=== PATIENT | female | born 1995 | race Caucasian/White ===

== ENCOUNTER → 2017-11-30 | Outpatient (CLI) | payer OTHER ==
--- NOTE | 2017-11-30 13:20 | US ---
EXAMINATION TYPE: Transabdominal DATE OF EXAM: 09/12/17 COMPARISON: NONE CLINICAL HISTORY: Z36 Confirm Dates. Confirm dates, patient unsure of LMP, 2, para 1 EXAM PERFORMED: Transabdominal (TA) EXAM MEASUREMENTS: GESTATIONAL AGE / DATING Physician Established: Not established yet Dates by LMP: Unknown Dates by First Scan: This is 1st scan Dates by Current Scan for: (10 weeks/0 days) EDC: 06/28/2017 MATERNAL ANATOMY Uterus: 13.8 x 6.6 x 7.0cm Right Ovary: 2.5 x 1.6 x 1.7cm Left Ovary: 3.0 x 2.1 x 2.0cm Post CDS / Adnexa: wnl Presence of free fluid: no Presence of corpus luteal cyst: not seen Presence of subchorionic bleed: no GESTATION / SURVEY CRL: 3.2cm (10 weeks/0 days) Yolk Sac (normal less than 6mm): 4.2mm Heart Rate: 163 bpm Rhythm: Normal IUP: Viable IUP Date of LMP: Unknown Beta HcG (if available): Not available at time of exam Viable single IUP measuring 10 weeks 0 days with a heart rate of 163bpm and an estimated delivery danny e of 06/28/2017. IMPRESSION: Single live intrauterine with a calculated sonographic age of 10 weeks and 0 days and estim ated date of delivery of 06/28/2017.
== END ==
LOC: RADUSWWP 12:21
PROVIDERS: ATTEND Obstetrics & Gynecology
DX: Z36.89 Encounter for other specified antenatal screening (principal); Z3A.10 10 weeks gestation of pregnancy
CPT/HCPCS: 76801

== ENCOUNTER → 2018-02-02 | Outpatient (CLI) | payer OTHER ==
--- NOTE | 2018-02-02 13:26 | US ---
EXAMINATION TYPE: US OB anatomy transabd DATE OF EXAM: 02/02/2018 COMPARISON: 11/30/2017 US HISTORY: O36.62XO Large for dates, 2nd trimester Difficult exam due to patient body habitus TECHNIQUE: Transabdominal (TA) EXAM MEASUREMENTS: GESTATIONAL AGE / DATING Physician Established: (19 weeks/1 days) EDC: 06/28/2018 Dates by LMP: (19 weeks/1 days) EDC: 06/28/2018 Dates by First Scan: (19 weeks/1 days) EDC: 06/28/2018 Dates by Current Scan for: (19 weeks/3 days) EDC: 06/26/2018 SURVEY IUP: Single PLACENTA: Anterior PREVIA: No previa MISA: 11.7 cm Normal CERVICAL LENGTH (transabdominal: norm > 3.0cm): 4.2 cm BIOMETRY PRESENTATION: Breech LIE: Transverse lie with head maternal Left BPD: 4.4 cm 19 weeks / 3 days HC: 16.95 cm 19 weeks / 4 days AC: 14.6 cm 19 weeks / 6 days FL: 3.05 cm 19 weeks / 3 days ESTIMATED WEIGHT IN GRAMS: 306.7 grams ESTIMATED WEIGHT IN LBS/OZ: 0 lbs. 11 oz. WEIGHT PERCENTAGE BASED ON ESTABLISHED DATE: 77 % HC/AC: 1.16 Normal FL/AC: 20.88 Normal HEART RATE: 146 bpm RHYTHM: Normal ANATOMY SEEN (within normal limits): * Lateral Vent (< 1 cm) 0.7 cm * Cisterna Magna (< 1.1 cm) 0.4 cm * Nuchal Fold (< 0.6 cm) 0.3 cm * Cerebellum (varies with age) 1.9 cm Choroid Plexus (bilateral) Midline Falx Cavus Septi Pellucidi Four Chamber Heart Outflow tracts: LVOT/RVOT Stomach Situs Diaphragm Kidneys (bilateral) Bladder Arms (bilateral) Legs (bilateral) ANATOMY NOT SEEN due to position: Spine Cord Insert 3 vessel cord Nose / Lips MATERNAL WALL MEASUREMENT: 5.1 cm from skin to anterior uterine wall (if exam limited due to body navarrete bitus). IMPRESSION: Viable IUP. Measurements consistent with dates. Patient scheduled for OB callback February 16, 2018 a t 9:40AM.
== END | disposition home or self-care (01) ==
LOC: RADUSWWP 10:56
PROVIDERS: ATTEND Obstetrics & Gynecology
DX: O36.62X0 Maternal care for excessive fetal growth, second trimester, not applicable or unspecified (principal); Z3A.00 Weeks of gestation of pregnancy not specified
CPT/HCPCS: 76811

== ENCOUNTER → 2018-02-16 | Outpatient (CLI) | payer OTHER ==
--- NOTE | 2018-02-16 12:45 | US ---
EXAMINATION TYPE: US OB Call Back DATE OF EXAM: 02/16/2018 COMPARISON: Prior ultrasound February 02, 2018 CLINICAL HISTORY: O36.62XO LARGE FOR DATES. complete out anatomy scan GESTATIONAL AGE / DATING Dates by Initial Survey Scan: (21 weeks/1 days) EDC: 06/28/2018 HEART RATE: 150 bpm RHYTHM: Normal ANATOMY SEEN (second anatomic survey look): Nose / Lips: Cord Insert : Three Vessel Cord: Longitudinal Spine: Transverse Spine: Successful visualization of the above structures during real-time scanning and on images saved felt t o be within normal limits IMPRESSION: As above
== END | disposition home or self-care (01) ==
LOC: RADUSWWP 09:39
PROVIDERS: ATTEND Obstetrics & Gynecology
DX: Z53.9 Procedure and treatment not carried out, unspecified reason (principal)

== ENCOUNTER 2018-06-21 05:55 | Inpatient (IN) | payer OTHER ==
[2018-06-21] MEDS ORDERED: CLINDAMYCIN 600 MG in DEXTROSE 5% IN WATER 50 ML IVPB STA ×2 (06:06)
[2018-06-21] MEDS ORDERED: CITRIC ACID-SODIUM CITRATE 15 ML CUP PO ONE (06:06)
[2018-06-21 06:35] VITALS: BMI 38.7
[2018-06-21] MEDS: LACTATED RINGERS 1,000 ML IV SCH ×3 (06:37→20:08)
[2018-06-21 06:58] LABS: Basophils % (A) 0 %; Eosinophils # (A) 0.1 k/uL (0-0.7); Eosinophils % (A) 1 %; HCT 35.7 % (34.0-46.0); HGB 11.9 gm/dL (11.4-16.0); Lymphocytes # (A) 2.3 k/uL (1.0-4.8); Lymphocytes % (A) 19 %; MCH 29.4 pg (25.0-35.0); MCHC 33.3 g/dL (31.0-37.0); MCV 88.2 fL (80.0-100.0); Mean Platelet Volume 9.2; Monocytes # (A) 0.6 k/uL (0-1.0); Monocytes % (A) 5 %; Neutrophils # (A) 8.4 k/uL (1.3-7.7); Neutrophils % (A) 71 %; Platelet Count 184 k/uL (150-450); RBC 4.05 m/uL (3.80-5.40); WBC 11.8 k/uL (3.8-10.6)
[2018-06-21] MEDS ORDERED: NALBUPHINE 10 MG/ML VIAL (10ML MDV) ONE (07:56)
[2018-06-21] MEDS ORDERED: MORPHINE SULFATE (PF) 0.3 MG/0.3 ML SYR ONE (07:56)
[2018-06-21] MEDS ORDERED: PHENYLEPHRINE-0.9% NACL SYG 1 MG/10 ML SYRINGE ONE (07:56)
[2018-06-21] MEDS ORDERED: KETOROLAC 30 MG/ML 1 ML VIAL ONE (07:56)
[2018-06-21] MEDS ORDERED: OXYTOCIN 10 UNIT/ML 1 ML VIAL ONE (07:56)
[2018-06-21] MEDS ORDERED: LACTATED RINGERS 1,000 ML BAG IV ONE (07:56)
[2018-06-21] MEDS ORDERED: ONDANSETRON 4 MG/2 ML VIAL ONE (07:56)
[2018-06-21] MEDS ORDERED: NALOXONE 0.4 MG/ML 1 ML VIAL IV PRN ×2 (08:51→09:03)
[2018-06-21] MEDS ORDERED: diphenhydrAMINE 50 MG/ML 1 ML VIAL IVP PRN ×3 (08:51→09:03)
[2018-06-21] MEDS ORDERED: NALBUPHINE 10 MG/ML VIAL (10ML MDV) IV PRN (08:51)
[2018-06-21] MEDS ORDERED: MORPHINE SULFATE 2 MG/ML SYRINGE IVP PRN (08:51)
[2018-06-21] MEDS ORDERED: ACETAMINOPHEN TAB 325 MG TAB PO PRN (09:03)
[2018-06-21] MEDS ORDERED: SIMETHICONE 80 MG CHEWABLE PO PRN (09:03)
[2018-06-21] MEDS ORDERED: METOCLOPRAMIDE 5 MG/ML 2 ML VIAL IVP PRN (09:03)
[2018-06-21] MEDS ORDERED: diphenhydrAMINE 50 MG CAP PO PRN (09:03)
[2018-06-21] MEDS ORDERED: HYDROcodone/APAP 7.5-325MG 1 EACH TAB PO PRN (09:03)
[2018-06-21] MEDS ORDERED: ZOLPIDEM 5 MG TAB PO PRN (09:03)
[2018-06-21] MEDS ORDERED: diphenhydrAMINE 25 MG CAP PO PRN (09:03)
[2018-06-21] MEDS ORDERED: OXYTOCIN 20 UNITS/1000 ML NS 1,000 ML IV SCH (09:15)
[2018-06-21] MEDS ORDERED: LACTATED RINGERS 1,000 ML IV SCH (09:15)
--- NOTE | 2018-06-21 09:29 | P.HPOB ---
History of Present Illness H&P Date: 06/21/18 Chief Complaint: repeat 22 year old presents at 39 weeks for repeat low transverse . Review of Systems All systems: negative Constitutional: Denies chills, Denies fever Eyes: denies blurred vision, denies pain Ears, nose, mouth and throat: Denies headache, Denies sore throat Cardiovascular: Denies chest pain, Denies shortness of breath Respiratory: Denies cough Gastrointestinal: Denies abdominal pain, Denies diarrhea, Denies nausea, Denies vomiting Genitourinary: Denies dysuria, Denies hematuria Musculoskeletal: Denies myalgias Integumentary: Denies pruritus, Denies rash Neurological: Denies numbness, Denies weakness Psychiatric: Denies anxiety, Denies depression Endocrine: Denies fatigue, Denies weight change Past Medical History Past Medical History: No Reported History Additional Past Medical History / Comment(s): First was a 9# 1oz. This is her second . She has had care with me since 10 weeks gestation. A+ abs neg, Rub immune, RPR NR, Hep B neg. Declined quad. Normal anatomy US. Abnormal 1hr, but normal 3hr GTT. History of Any Multi-Drug Resistant Organisms: None Reported Past Surgical History: Section Past Anesthesia/Blood Transfusion Reactions: No Reported Reaction Past Psychological History: No Psychological Hx Reported Smoking Status: Never smoker Past Alcohol Use History: None Reported Past Drug Use History: None Reported - Past Family History Mother Family Medical History: No Reported History Medications and Allergies Home Medications Medication Instructions Recorded Confirmed Type Pnv No.95/Ferrous Fum/Folic AC 1 tab PO DAILY 06/18/18 06/21/18 History [ Multivitamin Tablet] Allergies Allergy/AdvReac Type Severity Reaction Status Date / Time cefaclor [From Ceclor] Allergy Anaphylaxis Verified 06/21/18 06:06 cefuroxime axetil Allergy Anaphylaxis Verified 06/21/18 06:06 [From Ceftin] Exam Osteopathic Statement: *. No significant issues noted on an osteopathic structural exam other than those noted in the History and Physical/Consult. Vital Signs Temp Pulse Resp BP Pulse Ox 06/21/18 08:55 97.1 F L 79 16 119/56 98 06/21/18 08:51 78 16 122/57 99 06/21/18 06:05 97.6 F 97 16 128/65 99 Intake and Output 06/20/18 06/21/18 06/21/18 22:59 06:59 14:59 Other: Voiding Method Indwelling Catheter Weight 108.862 kg Heart: Regular rate and rhythm Lungs: Clear to auscultation bilaterally Abdomen: Soft, nontender Extremities: Negative Homans sign Results Result Diagrams: 06/21/18 06:40 Abnormal Lab Results - Last 24 Hours (Table) 06/21/18 Range/Units 06:40 WBC 11.8 H (3.8-10.6) k/uL Neutrophils # 8.4 H (1.3-7.7) k/uL Assessment and Plan (1) Previous section Current Visit: Yes Status: Acute Code(s): Z98.891 - HISTORY OF UTERINE SCAR FROM PREVIOUS SURGERY SNOMED Code(s): 312646954 Plan: 1. Repeat low transverse
--- NOTE | 2018-06-21 09:31 | P.OP ---
Date of Procedure: 06/21/18 Preoperative Diagnosis: 1. at 39 weeks 2. Previous section Postoperative Diagnosis: Same Procedure(s) Performed: Repeat low transverse Anesthesia: spinal Surgeon: Amparo Prieto Griddle Attendant #1: Lior Lind Estimated Blood Loss (ml): 300 IV fluids (ml): 600 Urine output (ml): 20 Pathology: none sent Condition: stable Disposition: floor Operative Findings: Normal uterus, tubes, ovaries. Viable male, Apgars 7, 9, weight 9 lbs. 4 oz. Description of Procedure: Patient was taken to the operating room where spinal anesthesia was found be adequate. She was prepped and draped in normal sterile fashion in dorsal supine position with a leftward tilt. Pfannenstiel skin incision was made the scalpel and carried through to the underlying layer of fascia with the scalpel. Fascia was incised in midline and carried bilaterally with the Chou scissors. The superior aspect of the fascial incision was grasped with [place] clamps elevated and the underlying rectus muscles dissected off with the Chou's. Attention was then turned to inferior aspect of same incision which in a similar fashion was grasped tented up and the underlying rectus muscles dissected off with the Chou's. The rectus muscles were the midline and the peritoneum was identified tented up and entered sharply with the scalpel. The incision was extended superiorly and inferiorly with good visualization of the bladder. The bladder blade was inserted and the vesicouterine peritoneum was incised the Metzenbaums then carried bilaterally and bladder flap created digitally. A low transverse incision was then made on the uterus with the scalpel. This was carried bilaterally and digital manner. 's head delivered atraumatically, nose and mouth bulb suctioned, cord clamped and cut, handed off to waiting nurses. Apgars 7,9, weight 9 lbs. 4 oz. Placenta delivered manually, intact with three-vessel cord. The uterus is exteriorized and cleared of all clots and debris. The uterine incision was closed with 0 Vicryl in a running locked fashion. Second layer of the same sutures used in imbricating fashion to obtain excellent hemostasis. Bladder flap was then reapproximated using 2-0 Vicryl in a running fashion. Both ovaries and tubes appeared normal. The uterus was placed back into the abdomen. The peritoneum was reapproximated using 2-0 Vicryl in a running fashion. The muscles were reapproximated using 2-0 Vicryl in interrupted fashion. The fascia was reapproximated using 0 Vicryl in a running fashion. The subcutaneous tissues closed with 3-0 Vicryl running fashion. The skin was closed sly. Patient tolerated the procedure well, sponge and instrument counts were correct times 2 and she was taken to the recovery room in stable condition.
[2018-06-21] MEDS: ONDANSETRON 4 MG/2 ML VIAL IVP PRN ×2 (13:01→20:04)
[2018-06-21] MEDS: SENNOSIDES-DOCUSATE SODIUM 1 EACH TAB PO SCH (20:08)
[2018-06-21] MEDS: KETOROLAC 30 MG/ML 1 ML VIAL IVP PRN (22:11)
[2018-06-22 05:42] LABS: Basophils % (A) 0 %; Eosinophils # (A) 0.1 k/uL (0-0.7); Eosinophils % (A) 1 %; HCT 33.2 % (34.0-46.0); Lymphocytes # (A) 2.2 k/uL (1.0-4.8); Lymphocytes % (A) 16 %; MCH 29.5 pg (25.0-35.0); MCHC 33.3 g/dL (31.0-37.0); MCV 88.4 fL (80.0-100.0); Mean Platelet Volume 8.9; Monocytes # (A) 0.7 k/uL (0-1.0); Monocytes % (A) 5 %; Neutrophils # (A) 10.3 k/uL (1.3-7.7); Neutrophils % (A) 75 %; Platelet Count 177 k/uL (150-450); RBC 3.75 m/uL (3.80-5.40); RDW 14.1 % (11.5-15.5); WBC 13.7 k/uL (3.8-10.6)
--- NOTE | 2018-06-22 05:59 | P.PN ---
Progress Note - Text Progress Note Date: 06/22/18 Giovana is postop day 1 from a with Duramorph. She is doing well today. Pain is under control. There is no lower extremity weakness. Bowel and bladder function have resumed. There is minimal pruritus. Baby is doing well. Motor strength is 5 out of 5, normal sensation in lower extremities. Anesthesia we'll sign off
[2018-06-22] MEDS: KETOROLAC 30 MG/ML 1 ML VIAL IVP PRN (08:07)
[2018-06-22] MEDS: SENNOSIDES-DOCUSATE SODIUM 1 EACH TAB PO SCH ×2 (08:16→20:54)
--- NOTE | 2018-06-22 08:20 | P.PNOBGPC ---
Subjective - Subjective Principal diagnosis: S/P RLTCS POD #1 Interval history: Patient seen and examined. Denies nausea, vomiting, chest pain, shortness of breath or calf pain. She has been ambulating and voiding normally. Patient reports: Reports appetite normal, Reports voiding normally, Reports pain well controlled, Reports ambulating normally Objective - Vital Signs Latest vital signs: Vital Signs Temp Pulse Resp BP Pulse Ox 06/22/18 08:12 97.7 F 70 17 113/63 06/22/18 06:00 17 06/22/18 04:00 98.7 F 81 18 94/52 97 06/22/18 00:00 96.9 F L 81 18 113/58 97 06/21/18 23:00 17 06/21/18 21:00 18 06/21/18 20:00 97.9 F 69 18 129/69 06/21/18 18:48 16 06/21/18 16:59 16 06/21/18 16:00 97.0 F L 73 16 123/60 96 06/21/18 15:00 16 06/21/18 13:00 16 06/21/18 12:00 96.3 F L 70 16 120/59 95 06/21/18 11:51 16 06/21/18 10:55 69 16 123/64 99 06/21/18 10:23 60 16 121/63 99 06/21/18 09:55 66 16 115/58 99 06/21/18 09:51 99 06/21/18 09:40 65 16 121/59 99 06/21/18 09:25 62 16 119/58 98 06/21/18 09:10 64 16 117/57 97 06/21/18 08:55 97.1 F L 79 16 119/56 98 06/21/18 08:51 78 16 122/57 99 Intake and Output 06/21/18 06/22/18 06/22/18 22:59 06:59 14:59 Intake Total 400 1200 Output Total 650 600 Balance -250 600 Intake: Oral 400 1200 Output: Urine 650 600 Uretheral (Gonzales) 325 - Exam Lungs: bilateral: normal Chest: Normal S1, Normal S2 Extremities: Present: normal Abdomen: Present: normal appearance, soft. Absent: distention, tenderness Incision: Present: normal, dry, intact Uterus: Present: normal, firm - Labs Labs: Abnormal Lab Results - Last 24 Hours (Table) 06/22/18 Range/Units 05:24 WBC 13.7 H (3.8-10.6) k/uL RBC 3.75 L (3.80-5.40) m/uL Hgb 11.0 L (11.4-16.0) gm/dL Hct 33.2 L (34.0-46.0) % Neutrophils # 10.3 H (1.3-7.7) k/uL Assessment and Plan (1) Previous section Current Visit: Yes Status: Resolved Code(s): Z98.891 - HISTORY OF UTERINE SCAR FROM PREVIOUS SURGERY SNOMED Code(s): 401462413 (2) Status post repeat low transverse section Current Visit: Yes Status: Acute Code(s): Z98.891 - HISTORY OF UTERINE SCAR FROM PREVIOUS SURGERY SNOMED Code(s): 521341576 Plan: 1. Increase ambulation 2. Regular diet 3. By mouth pain medication
[2018-06-22] MEDS: IBUPROFEN 600 MG TAB PO PRN ×2 (15:49→23:53)
--- NOTE | 2018-06-23 03:19 | P.DS ---
Providers Date of admission: 06/21/18 05:55 Expected date of discharge: 06/23/18 Attending physician: Amparo Prieto Primary care physician: Stated None Hospital Course: This is a 22-year-old female 2 para 1 at 39-0/7 weeks who presented for scheduled section. She underwent a repeat low transverse section on 06/21/2018 and delivered a viable male with scores of 7 at 1 minute and 9 at 5 minutes and weight of 9 lbs. 4 oz. Please see dictated operative report for details of the delivery. Postoperatively, she has done well. She is breast and bottlefeeding. Lochia is decreasing. Her pain is fairly well controlled with ibuprofen and Tylenol. She is passing flatus but no bowel movement yet. Vital signs are stable. Abdomen is soft with positive bowel sounds 4. Incision is clean dry and intact. Extremities show negative Homans. Impression is status post repeat section postoperative day #2. Plan is to discharge home later today. Routine postoperative and instructions are given. She is advised to follow up with Dr. Prieto in approximately 1 week for a postoperative check and in 6 weeks for a check. She will be given a prescription for ibuprofen. She states she has a breast pump at home. She is advised to call the office if she has any further questions or concerns prior to her appointment time. Procedures: Repeat low transverse section on 06/21/2018 Patient Condition at Discharge: Stable Plan - Discharge Summary Discharge Rx Participant: No New Discharge Prescriptions: New Ibuprofen [Motrin] 600 mg PO Q6HR PRN #60 tab PRN Reason: Mild Pain Or Fever >= 100.5 Continue Pnv No.95/Ferrous Fum/Folic AC [ Multivitamin Tablet] 1 tab PO DAILY Discharge Medication List Pnv No.95/Ferrous Fum/Folic AC [ Multivitamin Tablet] 1 tab PO DAILY 12/28 [History] Ibuprofen [Motrin] 600 mg PO Q6HR PRN #60 tab 06/23/18 [Rx] Follow up Appointment(s)/Referral(s): Amparo Prieto DO [Doctor of Osteopathic Medicine] - 1 Week Activity/Diet/Wound Care/Special Instructions: Instructions 1. Do not begin any exercise program for 3 weeks. 2. Do not resume sexual relations for 3 weeks or longer if uncomfortable. 3. You may take tub baths or showers at any time. 4. You may use tampons if desired after 3 weeks. 5. Keep the area of episiotomy (stitches) clean and dry. 6. If you are not nursing, wear a good fitting, supportive bra during the day and limit fluid intake for at least 1 week to prevent breast engorgement. 7. Call the office, [phone], within the next week to make appointment for your 6 week checkup if it has not already been made. 8. Report any of the following occurrences to the doctor promptly: a. Heavy, excessive bleeding b. Chills, fever c. Burning or frequency of urination d. Pain or redness and breasts if nursing e. Increasing pain or swelling in episiotomy (stitches). In addition to the above instructions, the following additional should be followed: 1. No heavy lifting or straining (exercising) until after 6 week checkup. 2. Keep abdominal incision clean and dry: You may wear a dressing if more comfortable. 3. Make office appointment for 10 days after going home or as instructed by her doctor. Discharge Disposition: HOME SELF-CARE
[2018-06-23 10:07] VITALS: BP 136/71; PULSE 63; RESP 14; TEMP 98
[2018-06-23] MEDS: SENNOSIDES-DOCUSATE SODIUM 1 EACH TAB PO SCH (10:40)
== END 2018-06-23 10:40 | disposition home or self-care (01) | DRG 788 ==
LOC: 4FBP 05:55
PROVIDERS: ADMIT Obstetrics & Gynecology; ATTEND Obstetrics & Gynecology
PROC: 10D00Z1 Extraction of Products of Conception, Low, Open Approach (ICD-10-PCS; principal; 2018-06-21 08:00)
DX: O34.211 Maternal care for low transverse scar from previous cesarean delivery (principal); Z37.0 Single live birth; Z3A.39 39 weeks gestation of pregnancy; Z88.1 Allergy status to other antibiotic agents
CPT/HCPCS: 85025; 86850; 86900; 86901

== ENCOUNTER → 2020-02-10 | Outpatient (CLI) | payer BC ==
--- NOTE | 2020-02-10 08:21 | USB ---
Reason for exam: clinical finding. Indicated problem(s): lump or thickening in the left breast. Physical Findings: Nurse Summary: patient noted lump 2-3 months ago, no pain, did first exam 2-3 months ago and found lump, unknown how long been there (nurse jj). US Breast BILAT Right complete breast ultrasound includes all four quadrants, the retroareolar region and axilla. Finding demonstrates no cystic or solid lesion seen. Left complete breast ultrasound includes all four quadrants, the retroareolar region and axilla. Finding demonstrates no cystic or solid lesion seen. These results were verbally communicated with the patient and result sheet given to the patient on 02/10/20. ASSESSMENT: Negative, BI-RAD 1 RECOMMENDATION: Clinical management of both breasts. Manage patient on a clinical basis.
== END | disposition home or self-care (01) ==
LOC: RADUSWWP 07:04
PROVIDERS: ATTEND Obstetrics & Gynecology
DX: N63.20 Unspecified lump in the left breast, unspecified quadrant (principal)